=== PATIENT | female | born 1950 | race Caucasian/White ===

== ENCOUNTER 2021-02-18 17:28 | Observation (INO) ==
[2021-02-18 19:05] LABS: Basophils % 0.2 %; Eosinophils # 0.2 K/mcL (0.0-0.6); Eosinophils % 2.4 %; Hematocrit 29.5 % (35.3-44.9); Hemoglobin 9.5 g/dL (11.5-15.4); Immature Granulocytes % 0.3 % (0-4); Lymphocytes # 1.4 K/mcL (0.6-4.6); Lymphocytes % 14.9 %; Mean Corpuscular HGB Conc 32.2 g/dL (31.6-35.5); Mean Corpuscular Hemoglobin 28.8 pg (28.0-33.3); Mean Corpuscular Volume 89.4 fL (83.0-100.0); Mean Platelet Volume 10.7 fL (9.4-12.4); Monocytes # 0.7 K/mcL (0.0-1.3); Monocytes % 7.4 %; Neutrophils # 7.2 K/mcL (1.6-8.9); Platelet Count 396 K/mcL (140-400); Segmented Neutrophils % 74.8 %; White Blood Count 9.6 K/mcL (4.3-11.1)
[2021-02-18 19:24] LABS: BUN/Creatinine Ratio 24 (6-26); Blood Urea Nitrogen 69 mg/dL (8-23); Calcium 9.2 mg/dL (8.6-10.3); Carbon Dioxide 25 mEq/L (23-29); Chloride 102 mEq/L (98-107); Glucose 166 mg/dL (70-105); Osmolality,Calculated 308 (280-300); Potassium 4.3 mEq/L (3.5-5.1); Sodium 137 mEq/L (136-145); eGFR For African Americans 19 (> 60); eGFR For Non-African Americans 16 (> 60)
[2021-02-18 19:26] LABS: Troponin I < 0.03 ng/mL (< 0.04)
[2021-02-18 19:51] LABS: Bilirubin,Urine Negative (Negative); Blood,Urine Negative (Negative); Color,Urine Yellow (Yellow); Glucose,Urine (UA) Normal (Normal); Ketones,Urine Negative (Negative); Leukocyte Esterase,Urine Negative (Negative); Nitrite,Urine Negative (Negative); Protein,Urine 100 mg/dL (Neg-Trace); Urobilinogen,Urine Normal (Normal)
[2021-02-18 19:54] LABS: Clarity,Urine Hazy (Clear)
[2021-02-18 19:58] LABS: Bacteria,Urine Many per hpf (None-Few); Hyaline Casts,Urine Few per lpf (None Seen)
[2021-02-18 20:00] LABS: Squamous Epithelial Cell,Urine Few per hpf (None-Few); WBC,Urine 0-3 per hpf (0-3)
[2021-02-18 20:02] LABS: Calcium Oxalate Crystals,Urine Present per hpf; RBC,Urine 0-3 per hpf (0-3)
[2021-02-18 20:03] LABS: Mucus,Urine Few per lpf (None-Few)
[2021-02-18] MEDS ORDERED: 0.9 % Sodium Chloride 1,000 ML IVC SCH (20:45)
[2021-02-18] MEDS ORDERED: *HR* Dextrose 50 % in Water (Syg) 50 ML SYRINGE IVP PRN (22:01)
[2021-02-18] MEDS ORDERED: Famotidine 20 MG TABLET PO SCH (22:01)
[2021-02-18] MEDS ORDERED: D5% in Water 1,000 ML IVC PRN (22:01)
[2021-02-18] MEDS ORDERED: Dextrose Gel 15 GM/37.5 ML TUBE PO PRN ×2 (22:01)
[2021-02-18] MEDS ORDERED: ALPRAZolam 0.5 MG TABLET PO PRN (22:01)
[2021-02-18] MEDS ORDERED: Apixaban 5 MG TABLET PO ONE (22:45)
[2021-02-18] MEDS: 0.9 % Sodium Chloride 1,000 ML IVC SCH (23:16)
[2021-02-18] MEDS: *HR* HYDROcodone/Acet 10/325 mg TABLET PO PRN (23:17)
[2021-02-19] MEDS: hydrALAZINE 25 MG TABLET PO SCH ×3 (08:58→21:44)
[2021-02-19] MEDS: amLODIPine 5 MG TABLET PO SCH (08:58)
[2021-02-19] MEDS: Metoprolol XL (24 HR) Succ 25 MG TAB.ER.24H PO SCH (08:59)
[2021-02-19] MEDS: Isosorbide MONOnitrate (24 HR) 30 MG TAB.ER.24H PO SCH (08:59)
[2021-02-19] MEDS: *HR* HYDROcodone/Acet 10/325 mg TABLET PO PRN (08:59)
[2021-02-19] MEDS ORDERED: *HR* Dextrose 50 % in Water (Syg) 50 ML SYRINGE IVP PRN (09:38)
[2021-02-19] MEDS ORDERED: Dextrose Gel 15 GM/37.5 ML TUBE PO PRN ×2 (09:38)
[2021-02-19] MEDS ORDERED: D5% in Water 1,000 ML IVC PRN (09:38)
[2021-02-19 09:45] LABS: Basophils % 0.4 %; Eosinophils # 0.4 K/mcL (0.0-0.6); Eosinophils % 4.8 %; Hematocrit 28.7 % (35.3-44.9); Hemoglobin 9.2 g/dL (11.5-15.4); Immature Granulocytes % 0.5 % (0-4); Lymphocytes # 2.1 K/mcL (0.6-4.6); Mean Corpuscular HGB Conc 32.1 g/dL (31.6-35.5); Mean Corpuscular Hemoglobin 28.9 pg (28.0-33.3); Mean Corpuscular Volume 90.3 fL (83.0-100.0); Mean Platelet Volume 10.6 fL (9.4-12.4); Monocytes # 0.7 K/mcL (0.0-1.3); Monocytes % 9.1 %; Neutrophils # 4.3 K/mcL (1.6-8.9); Platelet Count 394 K/mcL (140-400); Red Blood Count 3.18 M/mcL (3.82-4.97); Red Cell Distribution Width 16.2 % (11.5-14.5); Segmented Neutrophils % 57.2 %; White Blood Count 7.5 K/mcL (4.3-11.1)
[2021-02-19 09:53] LABS: Calcium 8.6 mg/dL (8.6-10.3); Potassium 3.9 mEq/L (3.5-5.1)
[2021-02-19] MEDS: cefTRIAXone 2,000 MG in 0.9 % Sodium Chloride Mini Bag 100 ML IVPB SCH (10:35)
[2021-02-19] MEDS: Insulin LISPRO 300 UNITS/3 ML VIAL SUBQ SCH ×3 (11:24→21:36)
[2021-02-19 14:36] LABS: Estimated Average Glucose 134 mg/dl; Hemoglobin A1C 6.3 %
[2021-02-19] MEDS: 0.9 % Sodium Chloride 1,000 ML IVC SCH (16:49)
[2021-02-19] MEDS ORDERED: Famotidine 20 MG TABLET PO SCH (21:00)
[2021-02-19] MEDS: Apixaban 5 MG TABLET PO SCH (21:46)
[2021-02-20] MEDS: 0.9 % Sodium Chloride 1,000 ML IVC SCH ×2 (04:37→14:40)
[2021-02-20] MEDS: Insulin LISPRO 300 UNITS/3 ML VIAL SUBQ SCH ×4 (07:32→21:22)
[2021-02-20] MEDS: hydrALAZINE 25 MG TABLET PO SCH ×3 (09:24→21:22)
[2021-02-20] MEDS: Apixaban 5 MG TABLET PO SCH ×2 (09:24→21:24)
[2021-02-20] MEDS: amLODIPine 5 MG TABLET PO SCH (09:25)
[2021-02-20] MEDS: Isosorbide MONOnitrate (24 HR) 30 MG TAB.ER.24H PO SCH (09:25)
[2021-02-20] MEDS: Metoprolol XL (24 HR) Succ 25 MG TAB.ER.24H PO SCH (09:25)
[2021-02-20] MEDS: cefTRIAXone 2,000 MG in 0.9 % Sodium Chloride Mini Bag 100 ML IVPB SCH (10:08)
[2021-02-20 13:32] LABS: Calcium 9.1 mg/dL (8.6-10.3); Potassium 4.3 mEq/L (3.5-5.1)
[2021-02-20] MEDS: Gabapentin 400 MG CAPSULE PO SCH (21:23)
[2021-02-21 02:43] VITALS: RESP 18
[2021-02-21] MEDS: 0.9 % Sodium Chloride 1,000 ML IVC SCH (04:05)
[2021-02-21 07:16] VITALS: BP 166/74; PULSE 56; TEMP 97.8; O2SAT 93
[2021-02-21 07:29] LABS: Basophils % 0.3 %; Eosinophils # 0.3 K/mcL (0.0-0.6); Eosinophils % 4.8 %; Hematocrit 27.9 % (35.3-44.9); Hemoglobin 8.8 g/dL (11.5-15.4); Immature Granulocytes % 0.3 % (0-4); Lymphocytes # 1.8 K/mcL (0.6-4.6); Lymphocytes % 28.5 %; Mean Corpuscular HGB Conc 31.5 g/dL (31.6-35.5); Mean Corpuscular Hemoglobin 28.7 pg (28.0-33.3); Mean Corpuscular Volume 90.9 fL (83.0-100.0); Mean Platelet Volume 10.8 fL (9.4-12.4); Monocytes # 0.8 K/mcL (0.0-1.3); Monocytes % 11.8 %; Neutrophils # 3.5 K/mcL (1.6-8.9); Platelet Count 373 K/mcL (140-400); Red Blood Count 3.07 M/mcL (3.82-4.97); Red Cell Distribution Width 16.8 % (11.5-14.5); Segmented Neutrophils % 54.3 %; White Blood Count 6.4 K/mcL (4.3-11.1)
[2021-02-21] MEDS: Insulin LISPRO 300 UNITS/3 ML VIAL SUBQ SCH ×2 (08:16→12:33)
[2021-02-21] MEDS: Gabapentin 400 MG CAPSULE PO SCH (08:18)
[2021-02-21] MEDS: Isosorbide MONOnitrate (24 HR) 30 MG TAB.ER.24H PO SCH (08:18)
[2021-02-21] MEDS: hydrALAZINE 25 MG TABLET PO SCH (08:18)
[2021-02-21] MEDS: amLODIPine 5 MG TABLET PO SCH (08:18)
[2021-02-21] MEDS: Apixaban 5 MG TABLET PO SCH (08:18)
[2021-02-21 09:58] LABS: Calcium 8.6 mg/dL (8.6-10.3); Potassium 4.1 mEq/L (3.5-5.1)
== END 2021-02-21 13:35 ==
LOC: INPPIK 17:28 → EMEROOPIK 17:28 → INPPIK 21:47
PROVIDERS: ADMIT Internal Medicine; ATTEND Internal Medicine